=== PATIENT | female | born 2000 | race Caucasian/White ===

== ENCOUNTER 2021-07-17 12:47 | Emergency (ER) | payer SELFPAY ==
[2021-07-17 13:08] VITALS: BMI 33.0
--- NOTE | 2021-07-17 13:33 | ECG_ITS ---
[facility] Test Date: 2021-07-17 Pat Name: Allyson Linda Department: Room: Gender: Female [employer]: : 2000 Requested By: Kinjal Black Order Number: [id number] Guevara MD: Saad Esquivel M.D. Measurements Intervals [place] Rate: 80 P: 38 MT: 132 QRS: 36 QRSD: 92 T: 41 QT: 361 QTc: 417 Interpretive Statements SINUS RHYTHM No previous ECG available for comparison Electronically Signed On 07-18-2021 17:06:01 CDT by Saad Esquivel M.D. [email or web address]
--- NOTE | 2021-07-17 13:33 | ED_ITS ---
HPI - Dizziness General: Chief Complaint: Dizziness Stated Complaint: Overheated Time Seen by Provider: 07/17/21 13:22 Source: patient Mode of arrival: ambulatory Limitations: no limitations History of Present Illness: HPI Narrative: Patient is a nice 21-year-old female who presents to ED today with a complaint of dizziness and a presyncopal episode. Patient states she was at work and was standing when she began feeling dizzy. He states she began feeling very hot and flushed and felt like she might pass out. She states she then been developing chest pain and shortness of breath. Patient states she was able to sit down and drink some water. She states chest pain and shortness of breath lasted approximately 5 minutes but has fully resolved. She states she does still feel a little dizzy. Denies any previous presyncopal or syncopal episodes. He is not having any palpitations or racing heartbeat. Patient has no history of exercise intolerance. Denies drug use. Rare/occasional alcohol use. Denies any excessive caffeine or energy drink use. Patient has no known cardiac or pulmonary history. Only medication is Prozac. MD elicited complaint: dizziness and near syncope Onset (ago): hour(s) Timing: sudden onset History of similar symptoms: No Relieving factors: other (sitting, resting, drinking water) Associated symptoms: Reports chest pain (resolved); Denies chills, headache(s), malaise, nausea, palpitations, syncope or vomiting Associated neuro symptoms: Deny confusion or numbness in extremities Stroke scale total: 0 Review of Systems Const: Denies: fever(s), chills, body aches, fatigue or malaise Eyes: Denies: change in vision, blurry vision, blind spots, photophobia, floaters or seeing flashes Card: Reports: chest pain (resolved) and pre-syncope; Denies: palpitations, irregular heart rhythm, edema, swelling of feet/ankles, syncope, dyspnea on exertion, orthopnea, leg pain with exertion or acrocyanosis Resp: Reports: dyspnea (resolved); Denies: productive cough, non-productive cough, wheezing, pain on inspiration, hemoptysis or chest congestion GI: Denies: abdominal pain, nausea, vomiting or diarrhea : Denies: flank pain, dysuria or pelvic pain Musc: Denies: neck pain, back pain, extremity pain or joint pain Skin/Breast: Denies: rash Neuro: Reports: dizziness; Denies: headache(s), numbness in extremities, weakness in extremities, sensory changes, lack of coordination, difficulty walking, frequent falls, vertigo, confusion, behavioral changes, Slurred speech present, difficulty communicating thoughts or seizure-like activity COUNTS INCLUDE 234 BEDS AT THE [facility] ED Female Reproductive History: Date of last menstrual period: 06/22/21 Physical Exam Const: COMMON NORMALS: no acute distress, patient oriented x3, no limitations and alert GENERAL APPEARANCE: cooperative NUTRITIONAL APPEARANCE: overweight ORIENTATION/CONSCIOUSNESS: Yes awake, Yes oriented to person, Yes oriented to place and Yes oriented to time HENMT: COMMON NORMALS: normocephalic and atraumatic HEAD & SCALP: normal to inspection, normocephalic and atraumatic Eye: GENERAL EYE: appearance normal, both eyes and all related structures Resp: COMMON NORMALS: normal respiratory effort and clear to auscultation bilaterally AUSCULTATION: clear to auscultation bilaterally Cardio: COMMON NORMALS: regular rate and regular rhythm RATE: regular rate RHYTHM: regular rhythm Extremity: GENERAL: Yes normal exam except as noted Neuro: CRISTIAN COMA SCALE: document GCS findings [place] coma scale eye opening: Spontaneous [place] coma scale verbal response: Orientated [place] coma scale motor response: Obey commands [place] coma scale total score: 15 COMMON NORMALS: patient oriented x3, CN's II-XII intact bilaterally, moves all extremities, no focal motor deficits, no sensory deficits noted and gait normal SENSORIUM/ORIENTATION: Yes alert, Yes oriented to person, Yes oriented to place and Yes oriented to time SPEECH: speech normal MOTOR EXAM: 5/5 motor strength present throughout Skin: COMMON NORMALS: no rashes or lesions noted GENERAL SKIN EXAM: no r ashes or lesions noted Course Vital Signs: Vital signs: Vital Signs Pulse Rate 68 07/17/21 15:29 Respiratory Rate 18 07/17/21 15:29 Blood Pressure 117/77 07/17/21 15:29 Pulse Oximetry 97 07/17/21 15:29 MDM - Dizziness Medical Decision Making Patient feels like dizziness has improved/resolved. Her vital signs are stable. At one point during her visit she did complain of some minor substernal chest pains but states it felt like heartburn and therefore was treated with a GI cocktail with complete relief of her symptoms. She has a normal EKG. Lab work is unremarkable. UA does show 2+ leuks. She is not having any urinary complaints and clinically this does not really fit with her symptomology. We will go ahead and culture. I do not have any concern at this point for cardiac or pulmonary etiology. Certainly sounds like a vasovagal episode. At this point I recommend she follow-up with her primary care provider. If she continues to have any further episodes I recommend she seek medical reevaluation here. Patient verbalizes understanding. She is stable for discharge at this time. Lab Data : 07/17/21 13:46 07/17/21 13:46 Laboratory Results WBC 7.4 10^3/uL (4.0-10.0) 07/17/21 13:46 RBC 4.69 10^6/uL (4.1-5.3) 07/17/21 13:46 Hgb 13.4 g/dL (11.5-15.3) 07/17/21 13:46 Hct 40.1 % (37.0-47.0) 07/17/21 13:46 MCV 85.5 fl (81-99) 07/17/21 13:46 MCH 28.6 pg (28.0-34.0) 07/17/21 13:46 MCHC 33.4 g/dL (30.0-36.0) 07/17/21 13:46 RDW 13.2 % (12.1-15.1) 07/17/21 13:46 Plt Count 237 10^3/cmm (130-400) 07/17/21 13:46 MPV 11.0 fL (7.4-10.4) H 07/17/21 13:46 Neut % (Auto) 58.8 % 07/17/21 13:46 Lymph % (Auto) 28.3 % 07/17/21 13:46 [place] % (Auto) 9.8 % 07/17/21 13:46 Eos % (Auto) 1.6 % 07/17/21 13:46 Baso % (Auto) 1.1 % 07/17/21 13:46 Neut # (Auto) 4.33 10^3/uL (1.8-7.7) 07/17/21 13:46 Lymph # (Auto) 2.1 10^3/uL (0.8-4.8) 07/17/21 13:46 [place] # (Auto) 0.7 10^3/uL (0.2-0.9) 07/17/21 13:46 Eos # (Auto) 0.1 10^3/uL (0.0-0.8) 07/17/21 13:46 Baso # (Auto) 0.1 10^3/uL (0.0-0.1) 07/17/21 13:46 Nucleated RBC % (auto) 0 % 07/17/21 13:46 Nucleated RBCs # 0.0 /100WBC 07/17/21 13:46 Sodium 136 mmol/L (136-145) 07/17/21 13:46 Potassium 4.1 mmol/L (3.5-5.1) 07/17/21 13:46 Chloride 101 mmol/L (98-107) 07/17/21 13:46 Carbon Dioxide 23 mmol/L (22-29) 07/17/21 13:46 Anion Gap 16.1 (5-19) 07/17/21 13:46 BUN 14 mg/dL (6-20) 07/17/21 13:46 Creatinine 0.7 mg/dL (0.5-0.9) 07/17/21 13:46 GFR Calculation 103.7 mL/min (90-130) 07/17/21 13:46 Glucose 72 mg/dL (65-115) 07/17/21 13:46 Calculated Osmolality 281 mOsm/kg (285-295) L 07/17/21 13:46 Calcium 9.3 mg/dL (8.5-10.5) 07/17/21 13:46 Total Bilirubin 0.2 mg/dL (0.15-1.2) 07/17/21 13:46 AST 15 U/L (0-32) 07/17/21 13:46 ALT 16 U/L (0-33) 07/17/21 13:46 Alkaline Phosphatase 54 IU/L (35-105) 07/17/21 13:46 Total Protein 7.7 g/dL (6.6-8.7) 07/17/21 13:46 Albumin 4.7 g/dL (3.5-5.2) 07/17/21 13:46 Globulin 3.0 g/dL (1.3-4.6) 07/17/21 13:46 HCG, Qual Negative (Negative) 07/17/21 14:14 Urine Color Yellow (Yellow) 07/17/21 13:34 Urine Appearance Clear (CLEAR) 07/17/21 13:34 Urine pH 6 (5-7) 07/17/21 13:34 Ur Specific [place] 1.005 (1.005-1.030) 07/17/21 13:34 Urine Protein Neg (Negative) 07/17/21 13:34 Urine Glucose (UA) Norm (Normal) 07/17/21 13:34 Urine Ketones Negative (Negative) 07/17/21 13:34 Urine Blood Neg (Negative) 07/17/21 13:34 Urine Nitrate Negative (Negative) 07/17/21 13:34 Urine Bilirubin Neg (Negative) 07/17/21 13:34 Urine Urobilinogen Norm mg/dL (Negative) 07/17/21 13:34 Ur Leukocyte Esterase 2+ (Negative) H 07/17/21 13:34 Urine RBC 0-4 /hpf (0-2) H 07/17/21 13:34 Urine WBC 0-4 /hpf (0-5) H 07/17/21 13:34 Ur Squamous Epith Cells 0-4 /hpf (0-5) H 07/17/21 13:34 Amorphous Sediment Not Reportable 07/17/21 13:34 Urine Bacteria None /hpf (NONE) 07/17/21 13:34 Discharge Plan Discharge Patient Disposition: Home Clinical Impression: Pre-syncope Condition: Stable Discharge Orders: Discharge ED (Routine); Ordered 07/17/21 Ordered By: Kinjal Black Patient Instructions: Near Syncope (ED), Dizziness (ED) Coding Level of Care Code ED Rn Triage for Rembertog Fwd Exam Comprehensive
[2021-07-17] MEDS: sodium chloride 0.9% 1,000 ML 999 ML IV (13:51)
[2021-07-17 13:53] LABS: Basophils # 0.1 10^3/uL (0.0-0.1); Basophils % 1.1 %; Eosinophils # 0.1 10^3/uL (0.0-0.8); Eosinophils % 1.6 %; Hematocrit 40.1 % (37.0-47.0); Hemoglobin 13.4 g/dL (11.5-15.3); Lymphocytes # 2.1 10^3/uL (0.8-4.8); Lymphocytes % 28.3 %; Mean Corpuscular HGB Conc 33.4 g/dL (30.0-36.0); Mean Corpuscular Hemoglobin 28.6 pg (28.0-34.0); Mean Corpuscular Volume 85.5 fl (81-99); Monocytes # 0.7 10^3/uL (0.2-0.9); Monocytes % 9.8 %; Neutrophils # 4.33 10^3/uL (1.8-7.7); Neutrophils % 58.8 %; Nucleated Red Blood Cells % 0 %; Platelet Count 237 10^3/cmm (130-400); Red Blood Count 4.69 10^6/uL (4.1-5.3); Red Cell Distribution Width 13.2 % (12.1-15.1); White Blood Count 7.4 10^3/uL (4.0-10.0)
[2021-07-17 14:27] LABS: Bilirubin Urine Neg (Negative); Blood Urine Neg (Negative); Glucose Urine UA Norm (Normal); Ketones Urine Negative (Negative); Nitrate Urine Negative (Negative); Protein Urine Neg (Negative); Specific Gravity, Urine 1.005 (1.005-1.030); Urine Appearance Clear (CLEAR); Urine Color Yellow (Yellow); pH Urine 6 (5-7)
[2021-07-17 14:28] LABS: Add Urine Culture? No; Add Urine Microscopic? YES; Leukocyte Esterase Urine 2+ (Negative); RBC Urine 0-4 /hpf (0-2); Squamous Epithelial Cell Urine 0-4 /hpf (0-5); Urobilinogen Urine Norm (Negative); WBC Urine 0-4 /hpf (0-5)
[2021-07-17 14:53] LABS: HCG, Serum Qual Negative (Negative)
[2021-07-17 15:10] LABS: Alanine Aminotransferase 16 U/L (0-33); Albumin Level 4.7 g/dL (3.5-5.2); Alkaline Phosphatase 54 IU/L (35-105); Anion Gap 16.1 (5-19); Aspartate Amino Transferase 15 U/L (0-32); Blood Urea Nitrogen 14 mg/dL (6-20); Calcium 9.3 mg/dL (8.5-10.5); Carbon Dioxide 23 mmol/L (22-29); Chloride 101 mmol/L (98-107); Glomerular Filtration Rate 103.7 mL/min (90-130); Glucose 72 mg/dL (65-115); Osmolality Calculated 281 mOsm/kg (285-295); Potassium 4.1 mmol/L (3.5-5.1); Sodium 136 mmol/L (136-145); Total Bilirubin 0.2 mg/dL (0.15-1.2); Total Protein 7.7 g/dL (6.6-8.7)
[2021-07-17 15:29] VITALS: BP 117/77; PULSE 68; RESP 18; O2SAT 97
[2021-07-17] MEDS: lidocaine 2% viscous 15 ML, aluminum-mag hydrox-simethicon 30 ML, sucralfate oral liq 1 GM PO (15:35)
== END 2021-07-17 16:03 | disposition home or self-care (01) ==
PROVIDERS: Emergency Provider Physician Assistant
DX: R55 Syncope and collapse (principal); R07.89 Other chest pain; R06.02 Shortness of breath
CPT/HCPCS: 80053; 81001; 84703; 85025; 87086; 93005; 99283; J7030